=== PATIENT | male | born 1935 | race Caucasian/White ===

== ENCOUNTER → 2023-06-03 | Outpatient (CLI) | payer BC ==
[2023-06-03 15:29] LABS: ALT 22 U/L (10-49); AST 21 U/L (14-35); Chol/HDL Ratio 2.52 Ratio; LDL Cholesterol,Calculated 45.7 mg/dL (0.0-131.0); VLDL Calculation 13.38 mg/dL (5.00-40.00)
== END | disposition home or self-care (01) ==
LOC: LABWHC1 09:41
PROVIDERS: ATTEND Internal Medicine Cardiovascular Disease
DX: E78.2 Mixed hyperlipidemia (principal)
CPT/HCPCS: 36415; 80061; 84450; 84460